=== PATIENT | male | born 1990 | race African-American/Black ===

== ENCOUNTER 2019-09-16 13:00 | Emergency (ER) | payer OTHER ==
[~2019-09-16] VITALS: Ht 177.8 cm; Wt 76.8 kg
[2019-09-16] MEDS ORDERED: XANA0.25 PO (13:32)
[2019-09-16] MEDS ORDERED: IBUP1TAB7 PO (13:32)
--- NOTE | 2019-09-16 13:46 | REP ---
CT brain: 09/16/2019. Indication: Stroke. Comparison: None. Technique: Unenhanced axial CT images of the brain were obtained from skull base to vertex. Findings: There is no acute intracranial hemorrhage, acute cortical infarction, mass effect or hydrocephalous. Impression: No acute intracranial process. Electronically Signed by Ham Gómez DO 09/16/2019 01:38 P
[2019-09-16 14:01] LABS: BASO # 0.1 10^3/uL (0.0-0.2); BASO % 0.7 % (0.0-1.0); EOS # 0.3 10^3/uL (0.0-0.5); EOS % 5.1 % (0.0-3.0); HEMATOCRIT 45.4 % (42.0-52.0); HEMOGLOBIN 14.3 g/dl (13.5-17.5); LYMPH # 3.3 10^3/uL (1.5-5.0); LYMPH % 49.7 % (24.0-44.0); MEAN CORPUSCULAR HEMOGLOBIN 25.8 pg (27.0-33.0); MEAN CORPUSCULAR HGB CONC 31.5 g/dl (32.0-36.5); MEAN CORPUSCULAR VOLUME 81.8 fl (80.0-96.0); MONO # 0.4 10^3/uL (0.0-0.8); MONO % 6.1 % (0.0-5.0); NEUTROPHILS # 2.6 10^3/uL (1.5-8.5); NEUTROPHILS % 38.3 % (36.0-66.0); PLATELET COUNT, AUTOMATED 195 10^3/uL (150-450); RED BLOOD COUNT 5.55 10^6/uL (4.30-6.10); WHITE BLOOD COUNT 6.7 10^3/uL (4.0-10.0)
[2019-09-16 14:30] LABS: ALBUMIN 3.8 GM/DL (3.2-5.2); ALT/SGPT 39 U/L (12-78); BILIRUBIN,DIRECT 0.1 MG/DL (0.0-0.2); BILIRUBIN,TOTAL 0.4 MG/DL (0.2-1.0); BLOOD UREA NITROGEN 12 MG/DL (7-18); CALCIUM LEVEL 8.9 MG/DL (8.5-10.1); CARBON DIOXIDE LEVEL 31 MEQ/L (21-32); CHLORIDE LEVEL 104 MEQ/L (98-107); CK-MB VALUE MASS < 1.0 NG/ML (<3.6); CPK CREATINE PHOSPHOKINASE 200 U/L (39-308); CREATININE FOR GFR 1.07 MG/DL (0.70-1.30); GLOMERULAR FILTRATION RATE > 60.0 (>60); GLUCOSE, FASTING 78 MG/DL (70-100); POTASSIUM SERUM 3.9 MEQ/L (3.5-5.1); SODIUM LEVEL 140 MEQ/L (136-145); TOTAL PROTEIN 7.8 GM/DL (6.4-8.2); TROPONIN I < 0.02 NG/ML (< 0.10)
[2019-09-16 14:34] LABS: AMPHETAMINES LEVEL URINE NEGATIVE (NEGATIVE); BARBITURATES URINE NEGATIVE (NEGATIVE); BENZODIAZEPINES URINE NEGATIVE (NEGATIVE); CANNABINOIDS URINE NEGATIVE (NEGATIVE); COCAINE METABOLITE URINE NEGATIVE (NEGATIVE); METHADONE URINE NEGATIVE (NEGATIVE); OPIATES URINE NEGATIVE (NEGATIVE); PHENCYCLIDINE URINE NEGATIVE (NEGATIVE)
[2019-09-16] MEDS ORDERED: NS 1,000 ML IV ONE (17:15)
--- NOTE | 2019-09-16 17:18 | ECGEPIP ---
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
[2019-09-16 17:31] VITALS: BP 131/60
[2019-09-16] MEDS ORDERED: KETO2CR TOP (17:33)
[2019-09-16 17:52] LABS: CHLAMYDIA DNA AMPLIFICATION NEGATIVE (NEGATIVE); GC DNA AMPLIFICATION NEGATIVE (NEGATIVE)
[2019-09-16 18:23] LABS: ACETAMINOPHEN LEVEL < 2.0 UG/ML (10.0-30.0); ETHYL ALCOHOL (ETHANOL) < 0.003 % (0.000-0.010); SALICYLATE LEVEL < 1.7 MG/DL (5.0-30.0)
== END 2019-09-16 17:36 | disposition home or self-care (01) ==
LOC: EDBD 13:00 → M ED 13:58
DX: F41.0 Panic disorder [episodic paroxysmal anxiety] (principal); R55 Syncope and collapse; R00.1 Bradycardia, unspecified; G89.29 Other chronic pain; M54.5 Low back pain; M25.559 Pain in unspecified hip; F32.9 Major depressive disorder, single episode, unspecified; F41.9 Anxiety disorder, unspecified; Z79.899 Other long term (current) drug therapy; Z88.0 Allergy status to penicillin
CPT/HCPCS: 70450; 80048; 80076; 80307; 82550; 82553; 84484; 85025; 86780; 87491; 87591; 93005; 99284; G0480

== ENCOUNTER 2019-12-03 07:53 | Emergency (ER) | payer OTHER ==
[~2019-12-03] VITALS: Ht 175.3 cm; Wt 78.2 kg
[~2019-12-03 07:53] MED LIST: IBUP1TAB7 PO; KETO2CR TOP; XANA0.25 PO
[2019-12-03] MEDS ORDERED: CYCLOBENZAPRINE 10 MG TAB PO ONE (09:00)
[2019-12-03 09:25] LABS: BASO # 0.1 10^3/uL (0.0-0.2); BASO % 0.5 % (0.0-1.0); EOS # 0.1 10^3/uL (0.0-0.5); EOS % 0.5 % (0.0-3.0); HEMATOCRIT 45.3 % (42.0-52.0); HEMOGLOBIN 14.8 g/dl (13.5-17.5); LYMPH # 1.6 10^3/uL (1.5-5.0); LYMPH % 14.6 % (24.0-44.0); MEAN CORPUSCULAR HEMOGLOBIN 26.3 pg (27.0-33.0); MEAN CORPUSCULAR HGB CONC 32.7 g/dl (32.0-36.5); MEAN CORPUSCULAR VOLUME 80.6 fl (80.0-96.0); MONO # 0.6 10^3/uL (0.0-0.8); NEUTROPHILS # 8.7 10^3/uL (1.5-8.5); PLATELET COUNT, AUTOMATED 210 10^3/uL (150-450); RED BLOOD COUNT 5.62 10^6/uL (4.30-6.10); WHITE BLOOD COUNT 10.9 10^3/uL (4.0-10.0)
[2019-12-03 09:46] LABS: BLOOD UREA NITROGEN 18 MG/DL (7-18); CALCIUM LEVEL 9.2 MG/DL (8.5-10.1); CARBON DIOXIDE LEVEL 26 MEQ/L (21-32); CHLORIDE LEVEL 108 MEQ/L (98-107); CPK CREATINE PHOSPHOKINASE 225 U/L (39-308); CREATININE FOR GFR 1.29 MG/DL (0.70-1.30); GLOMERULAR FILTRATION RATE > 60.0 (>60); GLUCOSE, FASTING 91 MG/DL (70-100); POTASSIUM SERUM 4.8 MEQ/L (3.5-5.1); SODIUM LEVEL 140 MEQ/L (136-145)
--- NOTE | 2019-12-03 09:54 | REP ---
Clinical: Midline thoracic pain. Technique: AP, lateral, and swimmers views. Findings: Alignment and kyphosis is maintained. Vertebral bodies intact. No acute fracture / compression injury or subluxation. No degenerative changes. Paravertebral soft tissues are normal. Impression: Normal thoracic spine series. Electronically Signed by Eh Mcclellan MD 12/03/2019 09:28 A
[2019-12-03] MEDS ORDERED: IBUPROFEN 800 MG TAB PO ONE (10:00)
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
[2019-12-03 10:50] LABS: APPEARANCE, URINE HAZY (CLEAR); BACTERIA, URINE AUTO NEGATIVE (NEGATIVE); BILIRUBIN, URINE AUTO NEGATIVE (NEGATIVE); BLOOD, URINE BLOOD NEGATIVE (NEGATIVE); COLOR, URINE YELLOW (YELLOW); GLUCOSE, URINE (UA) AUTO NEGATIVE (NEGATIVE); KETONE, URINE AUTO NEGATIVE (NEGATIVE); LEUKOCYTE ESTERASE, URINE AUTO NEGATIVE (NEGATIVE); MUCUS, URINE SMALL (NEGATIVE); NITRITE, URINE AUTO NEGATIVE (NEGATIVE); PROTEIN, URINE AUTO NEGATIVE (NEGATIVE); RBC, URINE AUTO 4 /HPF (0-3); SPECIFIC GRAVITY URINE AUTO 1.011 (1.002-1.035); SQUAMOUS EPITHELIAL CELL UR AU 0 /HPF (0-6); UROBILINOGEN, URINE AUTO 0.2 mg/dL (0.0-2.0); WBC, URINE AUTO 1 /HPF (0-3)
[2019-12-03] MEDS ORDERED: CYCL10TA PO (11:58)
[2019-12-03] MEDS ORDERED: IBUP-1022 PO (12:03)
[2019-12-03 12:04] VITALS: BP 114/62
== END 2019-12-03 12:19 | disposition home or self-care (01) ==
LOC: M ED 07:53 → EDBD 07:53 → M ED 12:19
DX: S39.012A Strain of muscle, fascia and tendon of lower back, initial encounter (principal); M54.16 Radiculopathy, lumbar region; M54.41 Lumbago with sciatica, right side; F41.9 Anxiety disorder, unspecified; Z79.899 Other long term (current) drug therapy; Z88.0 Allergy status to penicillin; Z91.030 Bee allergy status

== ENCOUNTER 2019-12-15 15:35 | Emergency (ER) | payer OTHER ==
[~2019-12-15] VITALS: Ht 175.3 cm; Wt 83.8 kg
[~2019-12-15 15:35] MED LIST changes: +CYCL10TA PO; +IBUP-1022 PO
[2019-12-15] MEDS ORDERED: DICYCLOMINE 10 MG CAP PO ONE (19:15)
[2019-12-15] MEDS ORDERED: methocarbamoL 750 MG TAB PO ONE (19:15)
[2019-12-15] MEDS ORDERED: predniSONE 20 MG TAB PO ONE (19:15)
[2019-12-15] MEDS ORDERED: PRED20TA PO (19:40)
[2019-12-15] MEDS ORDERED: ASPE4PAD TOP (19:40)
[2019-12-15] MEDS ORDERED: ROBA750T4 PO (19:40)
[2019-12-15] MEDS ORDERED: DICY10CA13 PO (19:49)
[2019-12-15 19:56] VITALS: BP 135/76
== END 2019-12-15 20:02 | disposition home or self-care (01) ==
LOC: M ED 15:35
DX: M51.26 Other intervertebral disc displacement, lumbar region (principal); R19.7 Diarrhea, unspecified; R20.2 Paresthesia of skin; R51 Headache; Z79.899 Other long term (current) drug therapy; Z88.0 Allergy status to penicillin; Z91.030 Bee allergy status

== ENCOUNTER 2020-07-04 09:47 | Emergency (ER) | payer OTHER ==
[~2020-07-04] VITALS: Ht 175.3 cm; Wt 84.6 kg
[~2020-07-04 09:47] MED LIST changes: +ASPE4PAD TOP; +CYCL-707 PO; -CYCL10TA PO; +DICY10CA13 PO; +PRED20TA PO; +ROBA750T4 PO
[2020-07-04] MEDS ORDERED: GABA-1171 (09:55)
[2020-07-04] MEDS ORDERED: ATEN25TA (09:55)
[2020-07-04] MEDS ORDERED: TIZA4TAB4 (09:55)
[2020-07-04] MEDS ORDERED: ESCI10TA2 (09:55)
[2020-07-04 11:10] VITALS: BP 123/74
[2020-07-04] MEDS ORDERED: CYCL-707 PO (11:10)
[2020-07-04] MEDS ORDERED: CYCLOBENZAPRINE 10MG TABLET PO ONE (11:15)
== END 2020-07-04 11:15 | disposition home or self-care (01) ==
LOC: M ED 09:47
DX: G89.29 Other chronic pain (principal); M54.5 Low back pain; M62.830 Muscle spasm of back; F41.9 Anxiety disorder, unspecified; Z79.899 Other long term (current) drug therapy; Z88.0 Allergy status to penicillin; Z91.030 Bee allergy status

== ENCOUNTER 2020-09-13 23:51 | Inpatient (IN) | payer OTHER ==
[~2020-09-13] VITALS: Ht 177.8 cm; Wt 87.0 kg
[~2020-09-13 23:51] MED LIST changes: +ATEN25TA; +ESCI10TA2; +GABA-1171; +TIZA4TAB4
[2020-09-14 00:40] LABS: HEMATOCRIT 40.7 % (42.0-52.0); HEMOGLOBIN 13.2 g/dl (13.5-17.5); MEAN CORPUSCULAR HEMOGLOBIN 26.3 pg (27.0-33.0); MEAN CORPUSCULAR HGB CONC 32.4 g/dl (32.0-36.5); MEAN CORPUSCULAR VOLUME 81.1 fl (80.0-96.0); PLATELET COUNT, AUTOMATED 209 10^3/uL (150-450); RED BLOOD COUNT 5.02 10^6/uL (4.30-6.10); WHITE BLOOD COUNT 8.1 10^3/uL (4.0-10.0)
[2020-09-14 01:16] LABS: ACETAMINOPHEN LEVEL < 2.0 UG/ML (10.0-30.0); ALBUMIN 4.1 GM/DL (3.2-5.2); ALT/SGPT 25 U/L (12-78); BILIRUBIN,DIRECT 0.2 MG/DL (0.0-0.2); BILIRUBIN,TOTAL 0.6 MG/DL (0.2-1.0); BLOOD UREA NITROGEN 13 MG/DL (7-18); CALCIUM LEVEL 8.9 MG/DL (8.5-10.1); CARBON DIOXIDE LEVEL 28 MEQ/L (21-32); CHLORIDE LEVEL 104 MEQ/L (98-107); CREATININE FOR GFR 1.18 MG/DL (0.70-1.30); ETHYL ALCOHOL (ETHANOL) < 0.003 % (0.000-0.010); GLOMERULAR FILTRATION RATE > 60.0 (>60); GLUCOSE, FASTING 94 MG/DL (70-100); POTASSIUM SERUM 3.6 MEQ/L (3.5-5.1); SALICYLATE LEVEL < 1.7 MG/DL (5.0-30.0); SODIUM LEVEL 137 MEQ/L (136-145); THYROID STIMULATING HORMONE 0.646 uIU/ML (0.358-3.740); TOTAL PROTEIN 7.9 GM/DL (6.4-8.2)
[2020-09-14 01:42] LABS: AMPHETAMINES LEVEL URINE NEGATIVE (NEGATIVE); BARBITURATES URINE NEGATIVE (NEGATIVE); BENZODIAZEPINES URINE NEGATIVE (NEGATIVE); CANNABINOIDS URINE NEGATIVE (NEGATIVE); COCAINE METABOLITE URINE NEGATIVE (NEGATIVE); METHADONE URINE NEGATIVE (NEGATIVE); OPIATES URINE NEGATIVE (NEGATIVE); PHENCYCLIDINE URINE NEGATIVE (NEGATIVE)
--- NOTE | 2020-09-14 05:41 | ECGEPIP ---
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
[2020-09-14] MEDS ORDERED: IBUP200C29 PO (13:56)
[2020-09-14] MEDS ORDERED: VITMTA PO (13:56)
[2020-09-14] MEDS ORDERED: D 50CAP2 PO (13:56)
[2020-09-14] MEDS ORDERED: CALC-211 PO (13:56)
[2020-09-14] MEDS ORDERED: ACETAMINOPHEN TAB 650MG DOSE (2X325MG) PO PRN (15:00)
[2020-09-14] MEDS ORDERED: MAALOX 30 ML SUSP *UDC PO PRN (15:00)
[2020-09-14] MEDS ORDERED: MOM 30ML SUSPENSION UDC PO PRN (15:00)
[2020-09-14] MEDS ORDERED: IBUPROFEN 800 MG TAB PO PRN (16:00)
[2020-09-14 16:15] VITALS: BP 123/72
[2020-09-14] MEDS ORDERED: traZODone 50 MG TAB PO PRN (21:00)
[2020-09-15 06:31] VITALS: BP 129/58
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
[2020-09-15] MEDS ORDERED: SERTRALINE HCL 25 MG TABLET PO ONE (13:00)
--- NOTE | 2020-09-15 13:03 | HPEPDOC ---
General Date of Admission Sep 14, 2020 at 14:35 Date of Service: Sep 15, 2020 Chief Complaint The patient is a 30-year-old male admitted with a reason for visit of Unspecified Depressive Disorder. Source: Patient Exam Limitations: No limitations Timing/Duration: Week(s) Severity: Moderate History of Present Illness Patient is 30 years old male with past medical history of chronic back pain due to bulging disc L3, anxiety, panic attack presented to the hospital with suicidal ideation. Patient stated that after join the [employer] he was under huge stress and he developed depression with suicidal ideation. Especially for the past few weeks he has been having severe depressed. During my interview patient denied fever, chills, nausea, vomiting, diarrhea or dysuria Home Medications Scheduled Calcium Carbonate (Calcium) 600 Mg Tablet, 600 MG PO DAILY, (Reported) Cholecalciferol (Vitamin D3) (Vitamin D3) 125 Mcg Capsule, 125 MCG PO DAILY, (Reported) Multivitamins (Thera M Plus Tablet) 1 Each Tablet, 1 TAB PO DAILY, (Reported) Scheduled PRN Ibuprofen (Ibuprofen) 200 Mg Capsule, 800 MG PO TID PRN for PAIN, (Reported) Allergies Coded Allergies: Penicillins (Verified Allergy, Unknown, 09/14/20) bee venom protein (honey bee) (Verified Allergy, Unknown, 09/14/20) anaphylaxis Past Medical History Medical History Chronic back pain due to L3 bulging disc, panic attack, depression, anxiety Family History Mother was diagnosed with breast cancer and diabetes Social History * Smoker: Denies Alcohol: Denies Drugs: denies A-FIB/CHADSVASC A-FIB History Current/History of A-Fib/PAF?: No Current PO Anticoag Therapy: No Review of Systems Constitutional: Denies: Chills, Fever Eyes: Denies: Pain ENT: Denies: Head Aches Skin: Denies: Rash, Lesions Pulmonary: Denies: Cough Cardiovascular: Denies: Chest Pain Gastrointestinal: Denies: Nausea, Vomiting Genitourinary: Denies: Dysuria Hematologic: Denies: Bruising Endocrine: Denies: Polydipsia Musculoskeletal: Reports: Other Symptoms (intermittent back pain in the lumbar area) Neurological: Denies: Weakness Psych: Reports: Anxiety, Depression Physical Examination General Exam: Positive: Alert Eye Exam: Positive: PERRLA ENT Exam: Positive: Atraumatic Neck Exam: Positive: Supple Chest Exam: Positive: Clear to auscultation Heart Exam: Positive: Rate Normal Telemetry: Positive: No significant arrhythmia Abdomen Exam: Positive: Normal bowel sounds Extremity Exam: Negative: Clubbing Skin Exam: Positive: Nl turgor and temperature Neuro Exam: Positive: Normal Gait, Strength at 5/5 X4 ext Psych Exam: Positive: Anxiety, Oriented x 3 Vital Signs Vital Signs Date Time Temp Pulse Resp B/P (MAP) Pulse Ox O2 Delivery O2 Flow Rate FiO2 09/15/20 06:31 97.5 64 18 129/58 (81) 09/14/20 06:23 100 Room Air Assessment/Plan Patient is 30 years old male with past medical history of chronic back pain due to bulging disc L3, anxiety, panic attack presented to the hospital with suicidal ideation. Patient stated that after join the [employer] he was under huge stress and he developed depression with suicidal ideation. Especially for the past few weeks he has been having severe depressed. During my interview patient denied fever, chills, nausea, vomiting, diarrhea or dysuria Problems (1) Depression Status: Acute Problem Text: Deferred treatment psych team (2) Lumbar disc herniation Status: Acute Problem Text: Continue ibuprofen Follow-up with orthopedic team in the outpatient settings Plan / VTE VTE Prophylaxis Ordered?: No VTE Exclusion Mechanical Proph: Low Risk for VTE DARIUS PEREZ DO Sep 15, 2020 13:03
[2020-09-15] MEDS: IBUPROFEN 400 MG TAB PO PRN (18:47)
[2020-09-15 19:50] VITALS: BP 123/73
[2020-09-16] MEDS ORDERED: SERTRALINE HCL 25 MG TABLET PO SCH (09:00)
[2020-09-16] MEDS: IBUPROFEN 400 MG TAB PO PRN (10:00)
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
[2020-09-16 16:48] VITALS: BP 126/58
[2020-09-16 16:49] VITALS: BP 135/81
[2020-09-17 06:33] VITALS: BP 128/80
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
[2020-09-17] MEDS ORDERED: SERT25TA21 PO ×2 (09:53→15:19)
== END 2020-09-17 13:41 | disposition home or self-care (01) | DRG 881 ==
LOC: M ED 23:51 → M ED INP 09-14 14:35 → M PSY 09-14 16:09
PROVIDERS: ADMIT Psychiatry & Neurology Addiction Medicine; ATTEND Psychiatry & Neurology Addiction Medicine
DX: F32.9 Major depressive disorder, single episode, unspecified (principal); Z63.0 Problems in relationship with spouse or partner; Z79.899 Other long term (current) drug therapy; Z88.0 Allergy status to penicillin; Z91.030 Bee allergy status; M51.36 Other intervertebral disc degeneration, lumbar region